=== PATIENT | female | born 1995 | race African-American/Black ===

== ENCOUNTER → 2018-09-02 | Outpatient (CLI) | payer OTHER ==
--- NOTE | 2018-09-02 08:40 | RAD ---
Indication:abd pain TECHNIQUE: Grayscale, color Doppler and spectral waveform is of the abdomen obtained. COMPARISON:None FINDINGS: Visualized pancreas is within normal limits. Pancreatic tail not visualized due to overlying bowel gas. IVC is patent. The distal aortic segment not visualized due to overlying bowel gas. No proximal or mid aortic aneurysm. Liver measures 16 centimeter in longest dimension and is normal in size and echogenicity. Main portal vein is patent. No gallstones, pericholecystic fluid or gallbladder wall thickening. CBD measures 5 millimeter in diameter and is within normal limits. Right kidney measures 12 cm in length without hydronephrosis. Spleen measures 12.2 cm in longest dimension and is normal in size. Left kidney measures 11.5 cm in length without hydronephrosis. IMPRESSION: 1. No cholelithiasis or sonographic evidence of acute cholecystitis. 2. No hepatomegaly. Electronically signed by: Oneil Locke DO (09/02/2018 8:35 AM) [id number]
== END | disposition home or self-care (01) ==
LOC: US 07:30
PROVIDERS: ATTEND Internal Medicine Gastroenterology
DX: R10.84 Generalized abdominal pain (principal)
CPT/HCPCS: 76700